=== PATIENT | male | born 1965 | race Caucasian/White ===

== ENCOUNTER 2016-12-16 07:49 | Day surgery (SDC) | payer BC ==
[~2016-12-16] VITALS: Ht 177.8 cm; Wt 83.0 kg
[2016-12-16] MEDS ORDERED: SYNTHROID0.175 MG PO (08:03)
[2016-12-16] MEDS ORDERED: GLUCOPHAGE1000 MG PO (08:04)
[2016-12-16] MEDS ORDERED: LOPID 600M600 MG/TAB PO (08:04)
[2016-12-16] MEDS ORDERED: LIPITOR20 MG PO (08:04)
[2016-12-16] MEDS ORDERED: ZESTRIL2.5 MG PO (08:05)
[2016-12-16] MEDS ORDERED: ASPIRIN 81M81 MG/TA2 PO (08:05)
[2016-12-16] MEDS ORDERED: NIACIN FLUSH F400 MG PO (08:06)
[2016-12-16] MEDS ORDERED: FISH OIL 1000MG1 CAP PO (08:06)
[2016-12-16] MEDS ORDERED: MASON NATURAL500 MG PO (08:07)
[2016-12-16 08:25] VITALS: BP 144/107; PULSE 95; TEMP 97.9
[2016-12-16 10:15] VITALS: BP 114/79; PULSE 90; TEMP 98.3
[2016-12-16 10:30] VITALS: BP 117/77; PULSE 86
== END 2016-12-16 10:45 | disposition home or self-care (01) ==
LOC: SDCO 07:49
DX: Z12.11 Encounter for screening for malignant neoplasm of colon (principal)
CPT/HCPCS: OP; J2250; J3010; J7030

== ENCOUNTER → 2017-04-01 | Outpatient (CLI) | payer BC ==
[~2017-04-01] MED LIST: ASPIRIN 81M81 MG/TA2 PO; FISH OIL 1000MG1 CAP PO; GLUCOPHAGE1000 MG PO; LIPITOR20 MG PO; LOPID 600M600 MG/TAB PO; MASON NATURAL500 MG PO; NIACIN FLUSH F400 MG PO; SYNTHROID0.175 MG PO; ZESTRIL2.5 MG PO
== END ==
LOC: SUN.DIA 12:17
DX: E11.65 Type 2 diabetes mellitus with hyperglycemia (principal); Z68.27 Body mass index [BMI] 27.0-27.9, adult; Z71.3 Dietary counseling and surveillance; E78.5 Hyperlipidemia, unspecified; I10 Essential (primary) hypertension
CPT/HCPCS: G0108

== ENCOUNTER 2018-04-11 18:18 | Emergency (ER) | payer BC ==
[~2018-04-11] VITALS: Ht 177.8 cm; Wt 88.2 kg
[2018-04-11 18:21] VITALS: TEMP 98.2
[2018-04-11 19:24] LABS: BASO # 0.1 (0.0-0.2); BASO % 0.5 % (0.0-2.0); EOS # 0.1 (0.0-0.7); EOS % 0.5 % (0-4.0); GRAN # 8.6 (1.4-6.5); GRAN % 77.6 % (42.2-75.2); HEMATOCRIT 40.4 % (42.0-52.0); LYMPH # 1.2 (1.2-3.4); MEAN CELL VOLUME 85 fl (80.0-100.0); MEAN CORPUSCULAR HEMOGLOBIN 29 pg (27.0-31.0); MEAN CORPUSCULAR HGB CONC 35 g/dl (33.0-37.0); MEAN PLATELET VOLUME 10.6 fl (7.4-10.4); MONO # 1.1 (0.1-0.6); RED BLOOD COUNT 4.77 M/mm3 (4.20-5.60); REDCELL DISTRIBUTION WIDTH-CV 12.8 % (11.5-14.5)
[2018-04-11 19:37] LABS: ALBUMIN 4.5 gm/dL (3.5-5.0); BILIRUBIN,TOTAL 1.1 mg/dL (0.0-1.0); CALCIUM 9.7 mg/dL (8.4-10.2); CREATININE, serum 1.14 mg/dL (0.66-1.25); POTASSIUM 4.2 mmol/L (3.4-5.0); TOTAL PROTEIN 8.4 gm/dL (6.4-8.2)
[2018-04-11 19:39] LABS: PLATELET COUNT 253 K/mm3 (130-400)
[2018-04-11] MEDS ORDERED: ZOFRAN ODT4 MG PO (20:00)
[2018-04-11 20:54] VITALS: BP 146/79; PULSE 88
== END 2018-04-11 20:54 | disposition home or self-care (01) ==
LOC: COL.ER 18:18
PROVIDERS: Emergency Medicine
DX: R11.2 Nausea with vomiting, unspecified (principal); E11.9 Type 2 diabetes mellitus without complications; Z79.84 Long term (current) use of oral hypoglycemic drugs; Z79.82 Long term (current) use of aspirin
CPT/HCPCS: J2405; J2550; J7030